=== PATIENT | male | born 1985 | race Caucasian/White ===

== ENCOUNTER 2019-05-24 17:24 | Emergency (ER) | payer MEDICAID ==
--- NOTE | 2019-05-24 18:10 | ED Physician Documentation ---
PD HPI ABD PAIN - Stated complaint Stated Complaint: UNABLE TO DEFICATE - Chief complaint Chief Complaint: Abd Pain - History obtained from History obtained from: Patient - History of Present Illness Timing - onset: Other (He is on Suboxone long-term for history of heroin abuse, he has chronic constipation. Really has not had a bowel movement in the last 2 weeks despite MiraLAX and a couple of enemas. He has abdominal pressure and some difficulty urinating because of it.) Associated symptoms: Other (No nausea or vomiting) Review of Systems Constitutional: reports: Reviewed and negative Cardiac: reports: Reviewed and negative Respiratory: reports: Reviewed and negative PD PAST MEDICAL HISTORY - Present Medications Home Medications: Ambulatory Orders Medication Instructions Recorded Confirmed Buprenorphine HCl/Naloxone HCl 1 each SL 05/24/19 [Suboxone 8-2 mg Sl tab] Gabapentin 100 mg PO 05/24/19 05/24/19 Pseudoephedrine [Sudafed] 30 mg PO 05/24/19 05/24/19 - Allergies Allergies/Adverse Reactions: Allergies Allergy/AdvReac Type Severity Reaction Status Date / Time dairy Allergy Cramps Uncoded 05/24/19 17:34 - Social History Does the pt smoke?: Yes Smoking Status: Current every day smoker PD ED PE NORMAL - Vitals Vital signs reviewed: Yes - General General: Alert and oriented X 3, No acute distress - Abdomen Abdomen: Normal bowel sounds, Soft, Non tender - Rectal Rectal: Other (No fecal impaction within fingers reach) - Neuro Neuro: Alert and oriented X 3, Normal speech Results - Vitals Vitals: Vital Signs - 24 hr 05/24/19 17:30 Temperature 36.8 C Heart Rate 73 Respiratory 18 Rate Blood Pressure 116/76 O2 Saturation 100 Oxygen O2 Source Room air - Rads (name of study) abd XR Radiology: EMP read contemporaneously (no SBO, pos stool) PD MEDICAL DECISION MAKING - ED course ED course: 33-year-old gentleman presents with constipation, given the time course we needed to rule out obstruction which was done with an x-ray, he was given magnesium citrate. No fecal impaction on exam. Departure - Departure Disposition: 01 Home, Self Care Clinical Impression: Constipation Condition: Good Record reviewed to determine appropriate education?: Yes Instructions: ED Constipation Comments: I would use a combination of the lactulose which you already have as well as MiraLAX and an occasional senna. Follow-up with the specialist as scheduled. Return for new or worsening symptoms.
--- NOTE | 2019-05-24 19:20 | XRAY Report ---
Reason: abd pain no BM Procedure Date: 05/24/2019 Accession Number: [id number] / [id number] Procedure: XR - Abdomen Acute CPT Code: Final Report FULL RESULT: EXAM: ABDOMINAL SERIES AND PA CHEST EXAM DATE: 05/24/2019 06:55 PM. CLINICAL HISTORY: Abd pain no BM. COMPARISON: ABD/PEL 03/12/2009 1:21 PM. TECHNIQUE: 2 views abdomen and 1 view chest. FINDINGS: CHEST: Lungs/Pleura: No focal opacities. No effusion or pneumothorax. Mediastinum: Within exam limitations, cardiomediastinal contour is normal. ABDOMEN: Bowel Gas Pattern: Within normal limits. No dilated loops or abnormal fluid levels. Moderate to marked stool throughout the colon. Free Air: None. Other: None. IMPRESSION: Moderate to marked constipation. RADIA
[2019-05-24] MEDS ORDERED: MAGNESIUM CITRATE 296 ML BOTTLE PO STA (20:15)
[2019-05-24 20:30] VITALS: BP 135/88
== END 2019-05-24 20:29 | disposition home or self-care (01) ==
LOC: ED 17:24
DX: K59.00 Constipation, unspecified (principal); F11.11 Opioid abuse, in remission; Z79.899 Other long term (current) drug therapy; F17.200 Nicotine dependence, unspecified, uncomplicated
CPT/HCPCS: 74022; 99282; 99284; A9270

== ENCOUNTER 2020-03-03 13:18 | Outpatient (CLI) | payer MEDICAID | END 2020-03-03 13:19 | disposition home or self-care (01) | LOC: COV 13:18 | PROVIDERS: ATTEND Specialist | DX: Z01.818 Encounter for other preprocedural examination (principal); J34.2 Deviated nasal septum; Z20.828 Contact with and (suspected) exposure to other viral communicable diseases ==

== ENCOUNTER 2021-11-14 13:06 | Outpatient (CLI) | payer MEDICAID ==
[2021-11-14 20:37] LABS: ALBUMIN 4.5 g/dL (3.2-5.5); BILIRUBIN,TOTAL 0.7 mg/dL (0.2-1.0); CALCIUM 8.5 mg/dL (8.5-10.3); CREATININE 0.9 mg/dL (0.6-1.2); POTASSIUM 3.8 mmol/L (3.5-5.0); TOTAL PROTEIN 6.7 g/dL (6.7-8.2)
== END 2021-11-14 13:07 | disposition home or self-care (01) ==
LOC: LAB.S 13:06
PROVIDERS: ATTEND Nurse Practitioner Family
DX: K59.00 Constipation, unspecified (principal); R35.0 Frequency of micturition
CPT/HCPCS: 36415; 80053; 84153; 87086

== ENCOUNTER 2021-11-19 11:43 | Outpatient (CLI) | payer MEDICAID ==
[2021-11-19] MEDS ORDERED: IOPAMIDOL-300 100 ML VIAL ONE (12:01)
[2021-11-19] MEDS ORDERED: IOVERSOL 320 50 ML VIAL ONE (12:01)
[2021-11-19] MEDS ORDERED: IOPAMIDOL-300 100 ML VIAL IVP ONE (13:29)
[2021-11-19] MEDS ORDERED: IOVERSOL 320 50 ML VIAL PO ONE (13:29)
--- NOTE | 2021-11-19 13:31 | CT Report ---
PROCEDURE: Abdomen/Pelvis W INDICATIONS: CONSTIPATION CONTRAST: IV CONTRAST: Isovue 300 ml: 100 PO CONTRAST: Optiray 320 ml50 TECHNIQUE: After the administration of IV and oral contrast, 5 mm thick sections acquired from the diaphragms to the symphysis. 5 mm thick coronal and sagittal reformats were acquired. For radiation dose reducti on, the following was used: automated exposure control, adjustment of mA and/or kV according to janet ent size. COMPARISON: None. FINDINGS: Image quality: Excellent. ABDOMEN: Lung bases: Lung bases are clear. Heart size is normal. Solid organs: Liver and spleen are normal in size and enhancement. Gallbladder is within normal hernandez its Biliary system is non dilated. Pancreas enhances normally. No adrenal nodules. Kidneys demons trate normal size and enhancement, without hydronephrosis. Peritoneum and bowel: Bowel loops demonstrate normal wall thickness and caliber. There is a moderate to large amount of diffuse colonic stool. No free fluid or air. Normal appendix. Nodes and vessels: No retroperitoneal or mesenteric adenopathy by size criteria. Aorta and inferior vena cava are normal in size. Miscellaneous: No ventral hernias. PELVIS: Genitourinary: Bladder wall thickness is normal. Miscellaneous: No inguinal hernias or adenopathy. Bones: No suspicious bony lesions. No vertebral body compression fractures. IMPRESSION: 1. Moderate to large amount of colonic stool. 2. No acute process. 3. Normal appendix. Reviewed by: Kieran Lopez MD on 11/19/2021 1:29 PM PDT Approved by: Kieran Lopez MD on 11/19/2021 1:29 PM PDT Station ID: [id number]
== END 2021-11-19 11:44 | disposition home or self-care (01) ==
LOC: DI 11:43
PROVIDERS: ATTEND Nurse Practitioner Family
DX: K59.00 Constipation, unspecified (principal)

== ENCOUNTER 2021-11-25 22:49 | Emergency (ER) | payer MEDICAID ==
--- NOTE | 2021-11-26 00:39 | ED Physician Documentation ---
PD HPI ABD PAIN - Stated complaint Stated Complaint: ABD PX - Chief complaint Chief Complaint: Abd Pain - History obtained from History obtained from: Patient - History of Present Illness Timing - onset: How many weeks ago (2-3) Timing - details: Gradual onset, Waxing and waning Quality: Cramping Location: All over / everywhere Associated symptoms: Constipation Recently seen: Clinic - Additional information Additional information: c/o 2-3 weeks of really constipated (per patient). Sensation of abdominal bloating with occasional generalized cramping, has had small amount BM including earlier today but symptoms s/o constipation persist. He says he has had problems with constipation before but not to this extent, and that typically the episodes would resolve with magnesium citrate. He has tried magnesium citrate, fleets enemas, miralax without success regarding his current symptoms. He had outpatient blood tests earlier this month (11/14) consisting of ER abdominal panel and PSA with unremarkable results (all normal except chloride of 98), and he had an outpatient CT scan last week which was notable only for moderate/large amount of colonic stool. Review of Systems Constitutional: reports: Reviewed and negative GI: reports: Abdominal Pain (occasional mild cramping), Abdominal Swelling, Constipation. denies: Nausea, Vomiting, Bloody / black stool PD PAST MEDICAL HISTORY - Past Medical History Past Medical History: Yes GI: GERD : Kidney stones Psych: Depression, Anxiety, ADD/ADHD - Past Surgical History Past Surgical History: Yes HEENT: Other - Present Medications Home Medications: Ambulatory Orders Medication Instructions Recorded Confirmed Buprenorphine HCl/Naloxone HCl 2 mg PO DAILY 11/25/21 11/25/21 [Suboxone 2 mg-0.5 mg Sl Film] Meclizine HCl 12.5 mg PO DAILY PRN 11/25/21 11/25/21 Omeprazole Magnesium 20 mg PO DAILY 11/25/21 11/25/21 Sodium/Potassium/Mag Sulfates 354 ml PO ONCE #1 kit 11/26/21 [Suprep Bowel Prep Kit] - Allergies Allergies/Adverse Reactions: Allergies Allergy/AdvReac Type Severity Reaction Status Date / Time dairy Allergy Cramps Uncoded 11/25/21 23:00 - Social History Does the pt smoke?: Yes Smoking Status: Current every day smoker Does the pt drink ETOH?: No Does the pt have substance abuse?: No - Immunizations Immunizations are current?: Yes - POLST Patient has POLST: No PD ED PE NORMAL - Vitals Vital signs reviewed: Yes - General General: Alert and oriented X 3, No acute distress, Well developed/nourished - Abdomen Abdomen: Soft, Non tender, Non distended, Other (diminished bowel sounds) Results - Vitals Vitals: Oxygen O2 Source Room air - Labs Labs: Laboratory Tests 11/26/21 00:58 Urine Color YELLOW Urine Clarity CLEAR Urine pH 8.5 H Ur Specific [place] 1.015 Urine Protein NEGATIVE Urine Glucose (UA) NEGATIVE Urine Ketones NEGATIVE Urine Occult Blood NEGATIVE Urine Nitrite NEGATIVE Urine Bilirubin NEGATIVE Urine Urobilinogen 2 H Ur Leukocyte Esterase NEGATIVE Ur Microscopic Review NOT INDICATED Urine Culture Comments NOT INDICATED - Rads (name of study) acute abdominal series (xrays) Radiology: Prelim report reviewed, See rad report PD MEDICAL DECISION MAKING - ED course Complexity details: reviewed old records, reviewed results, re-evaluated patient, considered differential, d/w patient ED course: plain-film xrays again (comparing with recent CT A/P) demonstrate large amount of colonic stool without evidence of bowel obstruction. He is nontender on abdominal exam. He says he attempted manual disimpaction but felt as though he palpated a hemorrhoid or mass. I performed a rectal exam and there are no external hemorrhoids and no palpable internal mass or internal hemorrhoid(s). There was no stool within the rectal vault to disimpact, which I already suspected based on the plain-film xrays. He is in NAD and thus I recommended d/c home at this time and plan is that I will e-prescribe a bowel prep kit which he will pick up worker when the pharmacy opens later this morning and use as per kit instructions. I advised him that he does not need to finish the entire prep should he have adequate results at any time. He is also given a mineral oil fleets enema to take home in order to facilitate the passage of stool (he says he has no enemas left at home and had difficulty finding them stocked at the pharmacies he had gone to). Return precautions discussed. Departure - Departure Disposition: Home, Self Care Clinical Impression: Constipation Qualifiers: Constipation type: unspecified constipation type Qualified Code(s): K59.00 - Constipation, unspecified Condition: Good Instructions: ED Constipation Prescriptions: Sodium/Potassium/Mag Sulfates [Suprep Bowel Prep Kit] 354 ml PO ONCE #1 kit Comments: A prescription for suprep has been electronically submitted to [facility] in [place]. This is usually used as a bowel prep to clear the bowels of stool before a colonoscopy; it will hopefully have this effect when you use it. Follow the label instructions on the kit. Discharge Date/Time: 11/26/21 03:08
[2021-11-26 01:02] LABS: BILIRUBIN,URINE NEGATIVE (NEGATIVE); GLUCOSE, URINE (UA) NEGATIVE (NEGATIVE); KETONES,URINE (UA) NEGATIVE (NEGATIVE); LEUKOCYTE ESTERASE, URINE NEGATIVE (NEGATIVE); NITRITE,URINE NEGATIVE (NEGATIVE); OCCULT BLOOD,URINE NEGATIVE (NEGATIVE); PH,URINE 8.5 PH (5.0-7.5); PROTEIN,URINE NEGATIVE (NEGATIVE); UROBILINOGEN,URINE 2 E.U./dL (NORMAL)
[2021-11-26 01:05] LABS: CLARITY,URINE CLEAR (CLEAR)
--- NOTE | 2021-11-26 02:00 | XRAY Report ---
PROCEDURE: Abdomen Acute INDICATIONS: abd. pain TECHNIQUE: One view chest and 3 views of the abdomen were acquired. COMPARISON: CT abdomen pelvis 11/19/2021, abdominal x-ray series 05/24/2019. FINDINGS: Surgical changes and devices: None. Chest: Lungs are clear. Heart size is normal. No pleural effusions. No pneumoperitoneum. Abdomen: Bowel gas pattern demonstrates a large amount of colonic stool throughout the colon. No dil ated small bowel loops. No suspicious calcifications. Bones: No suspicious bony lesions. IMPRESSION: 1. Large amount of colonic stool throughout the colon suggestive of constipation. No definite evidenc e of small bowel obstruction. Reviewed by: Zach Caldwell MD on 11/26/2021 1:58 AM PDT Approved by: Zach Caldwell MD on 11/26/2021 1:58 AM PDT Station ID: [id number]
[2021-11-26] MEDS ORDERED: MINERAL OIL ENEMA 133 ML BOTTLE RC STA (02:50)
[2021-11-26 03:08] VITALS: BP 113/80
== END 2021-11-26 03:08 | disposition home or self-care (01) ==
LOC: ED 22:49
DX: K59.00 Constipation, unspecified (principal); F17.200 Nicotine dependence, unspecified, uncomplicated
CPT/HCPCS: 74022; 81003; 99283; 99284; A9270; 81001; 87086

== ENCOUNTER 2022-11-16 16:41 | Outpatient (CLI) | payer MEDICAID ==
[2022-11-16 17:57] LABS: BASOPHILS # (AUTO) 0.1 10^3/uL (0.0-0.1); BASOPHILS % (AUTO) 1.5 %; EOSINOPHILS % (AUTO) 0.3 %; HGB - HEMOGLOBIN 13.9 g/dL (14.0-18.0); LYMPHOCYTES # (AUTO) 1.2 10^3/uL (1.5-3.5); LYMPHOCYTES % (AUTO) 19.4 %; MEAN CORPUSCULAR HEMOGLOBIN 30.1 pg (27.0-31.0); MEAN CORPUSCULAR HGB CONC 34.8 g/dL (32.0-36.0); MEAN CORPUSCULAR VOLUME 86.6 fL (80.0-94.0); MEAN PLATELET VOLUME 10.4 fL (7.4-11.4); MONOCYTES # (AUTO) 0.4 10^3/uL (0.0-1.0); NEUTROPHILS # (AUTO) 4.4 10^3/uL (1.5-6.6); NEUTROPHILS % (AUTO) 71.6 %; PLT - PLATELET COUNT 285 10^3/uL (130-450); RED BLOOD COUNT 4.62 10^6/uL (4.70-6.10); RED CELL DISTRIBUTION WIDTH 11.8 % (12.0-15.0); WHITE BLOOD COUNT 6.1 x10^3/uL (4.8-10.8)
[2022-11-16 18:05] LABS: ALBUMIN 4.5 g/dL (3.2-5.5); ALBUMIN/GLOBULIN RATIO 1.7 (1.0-2.2); BILIRUBIN,TOTAL 0.9 mg/dL (0.2-1.0); CALCIUM 8.7 mg/dL (8.5-10.3); CREATININE 1.2 mg/dL (0.6-1.2); POTASSIUM 4.5 mmol/L (3.5-5.0); TOTAL PROTEIN 7.1 g/dL (6.7-8.2)
[2022-11-16 18:20] LABS: T3 UPTAKE 43.7 % (32.0-48.4)
[2022-11-16 18:21] LABS: T4 (THYROXINE) 7.92 ug/dL (6.09-12.23)
[2022-11-16 18:22] LABS: THYROID STIMULATING HORMONE 2.22 uIU/mL (0.34-5.60)
[2022-11-16 18:24] LABS: FREE T4 (FREE THYROXINE) 1.14 ng/dL (0.58-1.64)
[2022-11-16 18:33] LABS: FOLATE 9.75 ng/mL (5.90 - >24.8)
== END 2022-11-16 16:42 | disposition home or self-care (01) ==
LOC: LAB 16:41
PROVIDERS: ATTEND Nurse Practitioner Psychiatric/Mental Health
DX: F41.1 Generalized anxiety disorder (principal)
CPT/HCPCS: 36415; 80053; 80307; 80324; 80348; 80353; 80354; 80358; 80361; 80365; 81599; 82306; 82607; 82746; 84436; 84439; 84443; 84479; 85025